=== PATIENT | female | born 1955 | race Caucasian/White ===

== ENCOUNTER 2017-03-03 11:00 | Day surgery (SDC) | payer OTHER ==
[~2017-03-03] VITALS: Ht 157.5 cm; Wt 93.5 kg
[2017-03-03] VITALS (9 sets, daily range): BP systolic 101–128; BP diastolic 60–73; PULSE 58–64; RESP 16–18; TEMP 97.5–98.4; O2SAT 94–100
[2017-03-03] MEDS ORDERED: LORazepam 1 MG TAB SL SCH (11:30)
[2017-03-03] MEDS ORDERED: SODIUM CHLORID 0.9% 500 ML INJ 500 ML IV SCH (11:30)
[2017-03-03] MEDS ORDERED: LACTATED RINGER'S 1000 ML IV PRN (11:45)
[2017-03-03] MEDS ORDERED: CHLORHEXIDINE GLUCONATE 2 % 1 PACK (2 CLOTHS) TOPICAL PRN (11:45)
[2017-03-03] MEDS ORDERED: POVIDONE IODINE 5% (ANTISEPSIS KIT) 4 APPLICATIONS EACH NARE PRN (11:45)
[2017-03-03] MEDS ORDERED: INSULIN HUMAN REGULAR 1,000 UNITS/10 ML VIAL SQ PRN (11:45)
[2017-03-03] MEDS ORDERED: SODIUM CHLORID 0.9% 500 ML IV PRN (12:00)
[2017-03-03] MEDS ORDERED: LEVOFLOXACIN 500 MG PREMIX INJ 100 ML IV ONE (12:15)
[2017-03-03] MEDS ORDERED: ISOPROTERENOL HCL 1 MG/5 ML AMP ONE (12:16)
[2017-03-03] MEDS ORDERED: PROTAMINE SULFATE 50 MG/5 ML VIAL ONE (12:16)
[2017-03-03] MEDS ORDERED: HEPARIN-D5W 25,000 U/250 ML 0 ML ONE (12:16)
[2017-03-03] MEDS ORDERED: HEPARIN SODIUM - IV 10,000 UNITS/10 ML VIAL ONE (12:17)
[2017-03-03] MEDS ORDERED: fentaNYL CITRATE 250 MCG/5 ML AMP ONE (12:17)
[2017-03-03 12:25] LABS: MEAN CELL VOLUME 85.9 FL (80.0-100.0); MEAN CORPUSCULAR HEMOGLOBIN 28.6 PG (27.0-34.0); MEAN CORPUSCULAR HGB CONC 33.3 % (32.0-36.0); PLATELET COUNT 209 TH/MM3 (150-450); RED BLOOD COUNT 4.89 MIL/MM3 (4.00-5.30); RED CELL DISTRIBUTION WIDTH 13.8 % (11.6-17.2); WHITE BLOOD COUNT 5.4 TH/MM3 (4.0-11.0)
[2017-03-03 12:27] LABS: HEMO FLAGS AUTO DIFF
[2017-03-03 12:31] LABS: APTT (PATIENT) 26.6 SEC (24.3-30.1); PROTHROMBIN TIME - PATIENT 11.3 SEC (9.8-11.6)
[2017-03-03] MEDS ORDERED: HEPARIN-NS/PF INJ 2,000 ML ONE (12:32)
[2017-03-03] MEDS ORDERED: APIX5TAB PO (12:37)
[2017-03-03] MEDS ORDERED: CALC500T35 (12:37)
[2017-03-03] MEDS ORDERED: MULT-65 PO (12:37)
[2017-03-03] MEDS ORDERED: NADO20TA PO (12:37)
[2017-03-03] MEDS ORDERED: LEVO100T5 PO (12:37)
[2017-03-03] MEDS ORDERED: SOTA80TA PO (12:37)
[2017-03-03 12:42] LABS: BICARBONATE 27.7 MEQ/L (21.0-32.0); POTASSIUM 3.9 MEQ/L (3.5-5.1)
[2017-03-03 13:05] LABS: BASOPHILS 1 % (0-2); EOSINOPHILS 1 % (0-4); NEUTROPHIL # MANUAL DIFF 3.3 TH/MM3 (1.8-7.7); POLYS (SEG NEUTROPHILS) 62 % (16-70); WBC DIFF SAMPLE 100
[2017-03-03 13:06] LABS: PLATELET ESTIMATE SMEAR NORMAL (NORMAL); PLATELET MORPHOLOGY NORMAL (NORMAL); SCAN/DIFF FINAL DIFF MANUAL
[2017-03-03] MEDS ORDERED: HEPARIN-D5W 25,000 U/250 ML 250 ML ONE (13:40)
--- NOTE | 2017-03-03 15:11 | CATHPROC ---
[employer] HIS Report Study Information Study Number Admission Scheduled Start Study Start [id number] Mar 03 2017 11:00AM 03/03/2017 Mar 03 2017 11:50AM [place] Service Electrophysiology Study Admit Source Facility Department Other [facility] Officer Physician and Clinical Staff Initial Vinnie Wright Press Operator [employer] Juju Rincon RCIS Other Darinel Villar,RT(R) Other Anesthesia, COAL HIKER Recorder Sherine Jennings,BSRN Recorder Linda Elkins,ALLI Scrub Janell Villanueva,RT(R) TECH2 Procedures Performed Procedure Location (Site) Vessel Name Ablation Procedure CRYO Ablation LIPV LIPV CRYO Ablation LSPV LSPV CRYO Ablation RIPV RIPV CRYO Ablation RSPV RSPV ICE CATHETER INSERT RA Atruim RF Ablation RA Atruim Venogram LIPV LIPV Venogram LSPV LSPV Venogram RIPV RIPV Venogram RSPV RSPV Equipment Time Spiral Tube Winder Description Size Mfg Part Number Used/Scraped NEEDLE, TRANSSEPTAL NRG 98 12:27 [facility] [id number] Used C1 BIOSENSE HERNÁNDEZ CATHETER, CELSIUS DS, 8MM, F [id number] 14:35 FR 7 Used INC. TYPE QUAD *[id number] [employer]/ EP 12:27 KIT, TRANSDUCER / AFIB [id number] Used PACER [id number] 12:27 [facility] CATHETER, JSN, QUAD BUNDLE FR 5 *[id number] Used BUNDLE [id number] 12:27 BUND[facility]-[employer] CATHETER, JSN, QUAD BUNDLE FR 5 *[id number] Used BUNDLE [id number], COOL POINT TUBING 12:27 BUNDLE-[employer] CASEY *[id number] Used BUNDLE BUNDLE SHEATH, FR8.5 STEERABLE SM 12:27 BUNDLE-[employer] CASEY 71CM [id number] Used 71CM BUNDLE COVER, TRANSDUCER CABLE 12:27 [employer] [id number] Used ACUNAV 12:27 CORDIS/PACER SHEATH, FR10 SHERIN 11CM FR 10 [id number] Used 12:27 CORDIS/PACER SHEATH, FR9 SHERIN 11CM FR 9 [id number] Used [id number] 12:27 MED[employer] PACK, CCL CUSTOM * Used *[id number] 12:27 MEDLINE PACER TERRELL, LIMB * 0603 *[id number] Used [id number] 12:27 [employer] SHEATH, FR4.5 PRELUDE 11CM FR 4.5 Used [id number] 12:27 NAMIC TUBING, HIGH PRESSURE 48" 48" Used *[id number] 12:27 NAMIC TUBING, HIGH PRESSURE 48" 48" Used *[id number] 14:12 NYCOMED OMNIPAQUE, 300 MG, 150ML 150ML [id number] Used [id number] 12:27 [employer] BLANKET,WARM AIR CCL * Used *[id number] 12:27 [facility] [employer] MEDICAL ELECTRODE KIT, MARISSA X SURFACE * [id number] Used 12:27 [facility] MEDICAL SHEATH, EPS, FR6 FAST CATH FR 6 [id number] Used 12:27 [facility] MEDICAL SHEATH, EPS, FR7 FAST CATH FR 7 [id number] Used 12:27 [facility] MEDICAL SHEATH, EPS, FR8 FAST CATH FR 8 [id number] Used CATHETER, ACUNAV FR10 ICE [id number] 12:54 MANJIT FR 10 Used (MANJIT) *[id number] [facility] PAD, ELECTROSURGICAL 12:27 * [id number] *[id number] Used SURGICAL GROUNDING (BLUE) BALLOON, ARCTIC FRONT [id number] 13:30 [employer] Used ADVANCE 28MM *[id number] CATHETER, ACHEIVE MAPPING [id number] 13:32 [employer] * Used 20MM [id number] SHEATH, FR12 FLEXCATH 13:29 V[employer]RON [employer] FR 12 [id number] Used STEERABLE History: Current Medications Medication Dosage/Unit Route Frequency Last Date/Time Taken ELIQUIS ASA History: Allergies Allergy Reaction NKDA History: Risk Factors Family History of Hypertension Dyslipidemia Previous NH Previous Heart Failure Premature CAD Yes No No No No Prior Valve Prior PCI Prior CABG Surgery No No No Cerebrovascular Peripheral Artery Chronic Lung On Dialysis Diabetes Disease Disease Disease No No No No No History: Symptoms/Diagnosis Selection Items ABDI History: Other Disease Selection Items HTN Labs Hgb (g/dl) Hct (%) RBC (MIL/MM3) WBC (l/cumm) Platelets (thousands) 11.60-17.00 35.00-51.00 4.00-5.90 4.00-11.00 150.00-450.00 14.0 42 4.8 5.4 209 Glucose (mg/dl) BUN (mg/dl) Creatinine (mg/dl) BUN:Creatinine (1:x) 74.00-106.00 7.00-18.00 0.50-1.30 10.00-20.00 93 28 1.1 25.5 Na (meq/l) K (meq/l) Cl (meq/l) CO2 (mmol/L) Ca (mg/dl) 136.00-145.00 3.50-5.10 98.00-107.00 21.00-32.00 8.50-10.10 143 3.9 107 27.7 9.1 INR (PTT:PT) 0.90-1.10 1 Medication Medication Total Dose (Bolus/Oral) Medication Total Dosage/Unit 1% XYLOCAINE 40 mL HEPARIN 58392 units PROTAMINE 40 mg Medications (Bolus/Oral) Medication Time Given Dosage/Unit Administered By Reason 1% XYLOCAINE 03/03/2017 1:16:10 PM 20 mL Vinnie Yañez For pain 20 mL 1% XYLOCAINE given in lab by Vinnie Yañez in Left Groin via Subcutaneous. Ordered by Amor Yañez. Reason: For pain. 1% XYLOCAINE 03/03/2017 1:19:21 PM 20 mL Vinnie Yañez For pain 20 mL 1% XYLOCAINE given in lab by Vinnie Yañez in Right Groin via Subcutaneous. Ordered by Logan Yañez. Reason: For pain. HEPARIN 03/03/2017 1:24:22 PM 9000 units Vinnie Yañez 9000 units HEPARIN given in lab by Vinnie Yañez via Peripheral IV. Ordered by Vinnie Yañez. HEPARIN 03/03/2017 1:38:11 PM 2000 units Anesthesia, COAL HIKER As per physicians verbal order 2000 units HEPARIN given in lab by Anesthesia, COAL HIKER in Right Antecubital via Peripheral IV. Ordered b y Vinnie Yañez. Reason: As per physicians verbal order. PROTAMINE 03/03/2017 3:00:00 PM 40 mg Anesthesia, COAL HIKER As per physicians ve rbal order 40 mg PROTAMINE given in lab by Anesthesia, COAL HIKER in Right Antecubital via Peripheral IV. Ordered by Vinnie Arevalo. Reason: As per physicians verbal order. Medication (Drip) Medication Time Given Dosage/Unit Concentration/Unit Diluent (ml) Solution HEPARIN DRIP 03/03/2017 1:38:32 PM 1000 units/hr 19448 units 250 D5W 1000 units/hr HEPARIN DRIP given in lab by Anesthesia, COAL HIKER in Right Antecubital via Peripheral IV. P ump/Drip Flow = 10 ml/hr [place] D5[place] [address] units in 250 ml. Ordered by Vinnie Yañez. Reason: As per physicians verbal or nae. ISUPREL 03/03/2017 2:42:00 PM 10 mcg/min 1 mg 250 NaCl .9 10 mcg/min ISUPREL given in lab by Anesthesia, COAL HIKER in Right Antecubital via Peripheral IV. Pump/Drip Flow = 150 ml/hr using NaCl .9 with a concentration of 1 mg in 250 ml. Ordered by Vinnie Yañez. Reason: As per physicians verbal order. IV Solutions 03/03/2017 12:16:00 PM 0 mL (IV) NaCl .9 IV Solutions given in lab by Sherine Jennings BSRN in Left Antecubital via Peripheral IV. Pump/Drip Flow = 50 ml/hr using NaCl .9. Ordered by Vinnie Yañez. Reason: As per physicians verbal order. IV Solutions 03/03/2017 12:16:05 PM 0 mL (IV) NaCl .9 IV Solutions given in lab by Sherine Jennings BSRN in Left Antecubital via Peripheral IV. Pump/Drip Flow = 50 ml/hr using NaCl .9. Ordered by Vinnie Yañez. Reason: As per physicians verbal order. LEVAQUIN 03/03/2017 12:10:00 PM 100 mL/hr 500 100 NaCl .9 100 mL/hr LEVAQUIN given pre op in Right Antecubital via Peripheral IV. Pump/Drip Flow = 0 ml/hr usin g NaCl .9 with a concentration of 500 in 100 ml. Ordered by Vinnie Yañez. Reason: As per physicians verbal order. Jesusita CARSON DOC unit Initial Case Assessment Cardiovascular HR NIBP Chest Pain 60 136/72 0 Edema Present Skin color Skin None Normal Warm Dry Neurological State Oriented to time-place- Alert Moves all extremities person Respiration - General Respiration Rate SpO2 (%) (B/min) 18 100 Final Case Assessment Cardiovascular HR NIBP 86 106/50 Edema Present Skin color Skin None Normal Warm Dry Neurological State Oriented to time-place- Alert Moves all extremities person Respiration - General Respiration Rate SpO2 (%) (B/min) 18 98 Chronological Log Time Study Chronological Log 100 mL/hr LEVAQUIN given pre op in Right Antecubital via Peripheral IV. Pump/Drip Flow = 0 ml/h r using NaCl .9 with 12:10:00 a concentration of 500 in 100 ml. Ordered by Vinnie Yañez. Reason: As per physicians brennon loomis order. Jesusita [facility] DOC unit 12:14:39 Patient arrived via Bed. 12:14:40 Indwelling uretheral catheter draining clear yellow urine placed in DOC 12:14:40 Patient Name, D.O.B, / Armband Verified By R.N. 12:14:41 Consent signed by the physician and the patient and verified by the County Health Officer staff. 12:14:41 Pre-op and post- op instructions given; patient acknowledges understanding of instructions. 12:14:42 Verbal Stimulation=2 Physical Stimulation=2 Airway=2 Respiration=2 TOTAL=8. (0=absent, 1=li mited, 2=present) 12:14:54 Anesthesia at bedside. Assumes care of patient. Chris COAL HIKER 12:14:57 Patient has been NPO for More than 6Hrs. 12:14:58 Skin Breakdown- 12:14:59 Patient Warmer Placed on the Table. 12:15:00 Patient Warmer Placed on the Table. Assessment: Initial Case, HR=60 BPM, NCES=954/72 mmhg, Chest Pain=0, Edema=None, Color=Normal, Skin = Warm, Dry 12:15:00 Neurological: State=Alert, Ox3, RAZA Respiration: Resp=18 B/min, DrW7=616 % 12:15:00 Disposable Defibrillator Pads Placed On Patient. 12:15:00 Elio Prominences Protected 12:15:03 A # 20 IV was noted in the Antecubital (left). Grade = ~GRADE~ 12:15:03 A # 20 IV was noted in the Antecubital (right). Grade = ~GRADE~ IV Solutions given in lab by Sherine Jennings BSRN in Left Antecubital via Peripheral IV. Pump /Drip Flow = 50 ml/hr 12:16:00 using NaCl .9. Ordered by Vinnie Yañez. Reason: As per physicians verbal order. IV Solutions given in lab by Sherine Jennings BSRN in Left Antecubital via Peripheral IV. Pump /Drip Flow = 50 ml/hr 12:16:05 using NaCl .9. Ordered by Vinnie Yañez. Reason: As per physicians verbal order. 12:28:02 Patient has been NPO for More than 6Hrs. 12:29:09 History and physical on the chart or being dictated. 12:29:11 Table restraints applied according to hospital policy 12:29:13 Right groin prepped with 2% chlorhexidine, and with a 3 min. waiting time. 12:29:16 Left groin prepped with 2% chlorhexidine, and with a 3 min. waiting time. 12:47:01 Pressure channel 1 zeroed. 12:51:13 MD notified ready. 12:56:18 Reference ECG taken 13:09:15 MD arrived. 13:09:36 Immediate Presedation assesment performed by physician. Time Out. Correct patient, procedure, procedure equipment, site and side verified with physicia n present. Time 13:12:00 concurred by MD, individual staff and COAL HIKER. Time Out #2 - Consents verified, patient in correct position, all results are labled and displa yed, safety precautions 13:12:15 taken, antibiotics administered. Time out concurred by MD, individual staff and COAL HIKER in procedu re 13:12:38 Case Start 13:13:00 LILIBETH performed at bedside by Dr. Yañez 13:15:33 LILIBETH complete. 20 mL 1% XYLOCAINE given in lab by Vinnie Yañez in Left Groin via Subcutaneous. Ordered by Vinnie Hendricks. 13:16:10 Reason: For pain. 13:16:28 Vascular access was obtained in the Fem Vein (left). 13:16:32 Vascular access was obtained in the Fem Vein (left). 13:16:33 Vascular access was obtained in the Fem Vein (left). 13:16:37 Vascular access was obtained in the Fem Art (left). 13:16:56 A SHEATH, FR4.5 PRELUDE 11CM FR 4.5 was advanced into the Fem Art (left) using the Percutan eous technique. 13:17:18 A SHEATH, EPS, FR6 FAST CATH FR 6 was advanced into the Fem Vein (left) using the Percutane ous technique. 13:17:27 A SHEATH, EPS, FR7 FAST CATH FR 7 was advanced into the Fem Vein (left) using the Percutane ous technique. 13:17:37 A SHEATH, FR10 SHERIN 11CM FR 10 was advanced into the Fem Vein (left) using the Percutaneo us technique. 20 mL 1% XYLOCAINE given in lab by Vinnie Yañez in Right Groin via Subcutaneous. Ordered by Vinnie Yen. 13:19:21 Reason: For pain. 13:19:31 Vascular access was obtained in the Fem Vein (right). 13:19:54 A SHEATH, EPS, FR8 FAST CATH FR 8 was advanced into the Fem Vein (right) using the Percutan eous technique. A CATHETER, JSN, QUAD BUNDLE FR 5 was advanced vis Fem Vein (left) and placed in the CS. Placem ent was visually 13:20:07 confirmed under fluoroscopy. A CATHETER, JSN, QUAD BUNDLE FR 5 was advanced vis Fem Vein (left) and placed in the HIS. Place ment was 13:20:22 visually confirmed under fluoroscopy. 13:21:04 CATHETER, ACUNAV FR10 ICE (Press) FR 10 Was Postioned. A SHEATH, FR8.5 STEERABLE SM 71CM BUNDLE 71CM was exchanged in the Fem Vein (right). This was n ecessary in 13:23:12 order for catheter support. 13:24:22 9000 units HEPARIN given in lab by Vinnie Yañez via Peripheral IV. Ordered by Yamileth Yañez y. 13:28:00 Clarita needle in 13:28:07 transseptal 13:28:30 Clarita needle out. A SHEATH, FR12 FLEXCATH STEERABLE FR 12 was exchanged in the Fem Vein (right). This was necessa ry in order to 13:29:00 accomodate a larger catheter. A CATHETER, ACHEIVE MAPPING 20MM * was advanced vis Fem Vein (right) and placed in the LA. Plac ement was 13:30:00 visually confirmed under fluoroscopy. 13:32:30 Activated Clotting Time Drawn 13:37:00 ACT (Normal Range 90-180) = 330 2000 units HEPARIN given in lab by Anesthesia, COAL HIKER in Right Antecubital via Peripheral IV. Ord ered by Vinnie Yañez. 13:38:11 Reason: As per physicians verbal order. 1000 units/hr HEPARIN DRIP given in lab by Anesthesia, COAL HIKER in Right Antecubital via Peripheral IV. Pump/Drip Flow = 13:38:32 10 ml/hr [place] [address] units in 250 ml. Ordered by Vinnie Yañez. Reason: As per physicians verbal order. 13:41:49 A BALLOON, ARCTIC FRONT ADVANCE 28MM was inserted over wire via the Fem Vein (right). 13:41:50 The LSPV was manually injected with 10 cc's of contrast. OMNIPAQUE, 300 MG, 150ML 150ML use d. 13:42:19 Cryo Ablation of the LSPV with a BALLOON, ARCTIC FRONT ADVANCE 28MM. first freeze 13:49:24 Activated Clotting Time Drawn 13:53:46 Cryo Ablation of the LSPV with a BALLOON, ARCTIC FRONT ADVANCE 28MM. second freeze 13:58:35 ACT (Normal Range 90-180) = 367 13:59:00 The LIPV was manually injected with 10 cc's of contrast. OMNIPAQUE, 300 MG, 150ML 150ML use d. 13:59:18 Cryo Ablation of the LIPV with a BALLOON, ARCTIC FRONT ADVANCE 28MM. first freeze 14:10:55 The RIPV was manually injected with 10 cc's of contrast. OMNIPAQUE, 300 MG, 150ML 150ML use d. 14:18:26 Cryo Ablation of the RIPV with a BALLOON, ARCTIC FRONT ADVANCE 28MM. first freeze 14:19:00 The RSPV was manually injected with 10 cc's of contrast. OMNIPAQUE, 300 MG, 150ML 150ML use d. 14:22:00 Cryo Ablation of the RSPV with a BALLOON, ARCTIC FRONT ADVANCE 28MM. 14:28:50 Activated Clotting Time Drawn 14:33:22 Cryo Catheter was removed 14:33:30 Heparin gtt off A CATHETER, CELSIUS DS, 8MM, F TYPE QUAD FR 7 was advanced vis Fem Vein (right[facility] 14:34:40 Placement was visually confirmed under fluoroscopy. 14:35:38 RF Ablation of the RA with a CATHETER, CELSIUS DS, 8MM, F TYPE QUAD FR 7. 14:36:45 ACT (Normal Range 90-180) = 378 10 mcg/min ISUPREL given in lab by Anesthesia, COAL HIKER in Right Antecubital via Peripheral IV. Pum p/Drip Flow = 150 14:42:00 ml/hr using NaCl .9 with a concentration of 1 mg in 250 ml. Ordered by Vinnie Yañez. Reaso n: As per physicians verbal order. 14:42:48 Ablation procedure performed: AFIB. 14:42:58 EP Procedure was performed. 14:52:53 Isuprel gtt turned off. Assessment: Final Case, HR=86 BPM, JDKB=368/50 mmhg, Edema=None, Color=Normal, Skin = Warm, Dry 14:53:29 Neurological: State=Alert, Ox3, RAZA Respiration: Resp=18 B/min, SpO2=98 % 40 mg PROTAMINE given in lab by Anesthesia, COAL HIKER in Right Antecubital via Peripheral IV. Order ed by Vinnie Yañez. 15:00:00 Reason: As per physicians verbal order. 15:01:09 Catheter(s) removed without difficulty NS to catheters. 15:01:28 Sheath(s) left in place, will be removed in Holding Area 15:01:39 Sterile dressing applied to site 15:01:41 No case complications noted. 15:01:44 Cine recording checked. 15:01:48 Holding Area notified of successful intervention. 15:01:52 Bedside Report will be given. 15:01:56 Contrast Scanned 15:01:58 Defibrillator and ground pads removed. Skin intact. 15:02:20 PACU called. Spoke to Meka. 15:08:00 Activated Clotting Time Drawn 15:10:00 ACT (Normal Range 90-180) = 139 15:10:29 Case End 15:20:[facility] in stable condition. End Study - Contrast Media Used In Study Contrast Total Opened (mL) Total Used (mL) Total Wasted (mL) Omnipaque 150 40 110 End Study - Maximum Contrast Load Max Contrast Load (mL) 409.9 End Study - Radiation Exposure Fluoro Time (minutes) 5.6 End Study - Patient Disposition Complications Transferred To Interventional Outcome No Telemetry Bed successful
[2017-03-03] MEDS ORDERED: ATROPINE SULFATE 1 MG/ML VIAL IV PRN (15:15)
[2017-03-03] MEDS ORDERED: LIDOCAINE HCL 1% 50 ML VIAL INFIL PRN (15:15)
[2017-03-03] MEDS ORDERED: LORazepam 2 MG/ML VIAL IV PRN (15:15)
[2017-03-03] MEDS ORDERED: ONDANSETRON HCL 4 MG/2 ML VIAL IV PRN (15:15)
[2017-03-03] MEDS ORDERED: METOCLOPRAMIDE HCL 10 MG/2 ML VIAL IV PRN (15:15)
[2017-03-03] MEDS ORDERED: oxyCODONE/ACETAMINOPHEN 5 MG/325 MG TAB PO PRN (15:15)
[2017-03-03] MEDS ORDERED: BACITRACIN OINT 0.9 GM PKT TOP ONE (15:15)
[2017-03-03] MEDS ORDERED: SODIUM CHLOR 0.9% 250 ML INJ 250 ML IV PRN (15:15)
--- NOTE | 2017-03-03 15:50 | MA ---
cc: JAMESON RUSSO M.D. DATE: 03/03/2017 PROCEDURE: Electrophysiology study, CS cannulation, 3-D mapping, transeptal approach, cryoablation of atrial fibrillation, pulmonary vein isolation, posterior ablation, atrial flutter ablation, repeat electrophysiology study on Isuprel infusion. Intracardiac echo that was a very complex case. Mrs. Munoz is a 62-year-old female with frequent tachyarrhythmia, previous hospitalization, referred for electrophysiology study, atrial flutter, atrial fibrillation ablation. The risks, the nature and the benefit of the procedure are clearly stated to her risks include pneumothorax, cardiac perforation, stroke, need for open heart surgery and even . The patient understood and agreed to proceed. PROCEDURE As written informed consent was obtained prior to transesophageal echo the patient was kept on the table where she was prepped and draped in the usual sterile fashion. Conscious sedation was initiated and maintained throughout the procedure by anesthesiologist. Once sedation verified, the right and left inguinal area was anesthetized with 2% Xylocaine. Using modified Seldinger technique, the left femoral vein was cannulated on three occasions and the guide wire was advanced over the wire, 6 or 7, and a 10-Brazilian Hemaquet was advanced. Then the left femoral artery was cannulated on one occasion, one guide wire was advanced over the wire, a 4-Brazilian Hemaquet was advanced. Then the right femoral vein was cannulated on one occasion, one guidewire was advanced over the wire an 8-Brazilian Hemaquet was advanced. Then under fluoroscopic guidance through the 6 and 7-Brazilian Hemaquet, two 5-Brazilian Nicole curved quadripolar electrophysiology catheters were advanced and placed on the HIS as well as coronary sinus. Basic interval was measured and were all within normal limits. Through the 10-Brazilian Hemaquet, a Cordis Rodríguez Actonel intracardiac echo catheter was placed at the right atrium. Multiple view was obtained. There is no pericardial effusion. Pulmonary vein was seen, atrial septum was well visualized. Then the 8-Brazilian Hemaquet in the right femoral vein was exchanged for distal septal sheath that was placed all the way to the superior vena cava. Through the sheath a [place] needle was advanced. At that point the patient received 10,000 units of heparin. The goal is to keep ACT around 350 during the ablation. Then the sheath was dilated and needle was pulled back until foci engaged. Once engaged, the needle was advanced. RF was delivered for 2 seconds. I was able to cross into the left atrium. Once the needle crossed dilator was advanced, one dilator crossed the sheath was advanced, when the sheath crossed the dilator the needle were removed. Intracardiac echo showed sheath in good position. At this point I decided to proceed with cryoablation of the pulmonary veins. Through the sheath, 035 wire was advanced. The wire was placed at the left superior vein. Then sheath was exchanged over the wire for a Medtronic flex sheath. Once the flex sheath crossed the dilator the needle was removed. Continue flush out of the system was performed using IV pump. Then through the sheath the 28 mm balloon was advanced. To the balloon I did advance the sheath circumferential catheter mapping from [employer]. I did engage the left superior vein. Signal was seen, the vein was mapped. The balloon was inflated. A venography was performed and when total occlusion was observed. Cryo energy was delivered for 3 and 3 minutes. Comparative drop -48. I did ablate it twice. At the pacing from the vein showed no conduction to the atrium. I did map part of the posterior anterior wall. There was no signal in the veins. Then I decided to engage the left inferior vein. It was engaged. The circumferential catheter was advanced into the vein. The balloon was inflated after complete occlusion of observed. Cryo energy was delivered for 240-seconds. Then subsequently 180-seconds. Signal disappeared pretty fast in the vein. Then pacing from the vein showed no conduction to the atrium. I did map the area. There was no significant signal. Then the his catheter was placed at the level of the right subclavian. Pacing was performed. There was good capture of the phrenic nerve. There was diaphragmatic stimulation. This catheter was be kept in place for monitoring of the phrenic nerve during the right vein isolation. First I did engage the right inferior vein occlusion obtained. Cryo energy was in was delivered for 180 seconds. No conduction resumed. Pacing from the vein showed no conduction to the atrium. Then the right superior was engaged and balloon was inflated. After of occlusion, Cryo energy was delivered for 180 and 180 seconds. Then I did map around the atrium and the vein. There was no conduction by pacing and the posterior anterior wall was completely isolated. At that point I did remove the balloon in the sheath. I did proceed with atrial pacing protocol. During pacing from the coronary sinus atrial flutter was induced. I decided to proceed with ablation. The patient converted into sinus rhythm. A 8-mm Cordis F curve mapping radiofrequency ablation catheter was advanced. Using <<6:21>> a three-dimensional configuration all the right atrium was obtained also. Then the catheter was placed at the critical isthmus radiating at a frequency energy was delivered. Subsequently pacing lateral to the line showed a activation in the HIS compared to the CS that indicated bilateral <<6:38>> block. At that point atrial pacing protocol was repeated again no tachyarrhythmia was induced. Isuprel was infused at 10 ivania and no tachyarrhythmia was induced post Isuprel no tachyarrhythmia was induced. At that point procedure was complete. Intracardiac portion was pericardial effusion. A transseptal sheath was exchanged for a 12-Brazilian Hemaquet. The patient going to be transferred to recovery room. That was very complex case. No incident report. The patient tolerated procedure, blood loss minimal. FINDINGS: 1. Electrocardiogram baseline the patient was in sinus rhythm. postprocedure electrocardiogram was unchanged. 2. Basic interval base cycle length was around 890, AH at 90 and HV was around 45 milliseconds. 3. Atrial pacing protocol Wenckebach of the node was around 460 milliseconds. During atrial pacing protocol at the coronary sinus atrial flutter was induced. 4. Tachyarrhythmia atrial fibrillation was mapped and ablated atrial flutter was mapped and ablated. Ablation was successful. CONCLUSION Status electrophysiology study, mapping radiofrequency ablation of atrial fibrillation, atrial flutter, COMMENT/RECOMMENDATIONS The patient going to be transferred to the telemetry unit. Will be observed when stable can be discharged home. MD MOLINA Flores/eladio /3:08 PM /3:32 PM
[2017-03-03] MEDS: oxyCODONE/ACETAMINOPHEN 5 MG/325 MG TAB PO PRN ×2 (16:14→21:07)
[2017-03-03] MEDS ORDERED: DO NOT ADM ANY ANTICOAGULANT DRUGS PRN (17:30)
[2017-03-03] MEDS: SOTALOL HCL 80 MG TAB PO SCH (21:07)
[2017-03-03] MEDS: APIXABAN 5 MG TABLET PO SCH (21:07)
[2017-03-04] VITALS (11 sets, daily range): BP systolic 97–108; BP diastolic 58–76; PULSE 61–66; RESP 16–18; TEMP 97.7–98; O2SAT 96
[2017-03-04] MEDS ORDERED: LEVOTHYROXINE SODIUM 100 MCG TAB PO SCH (06:00)
[2017-03-04 07:10] LABS: APTT (PATIENT) 25.4 SEC (24.3-30.1); INTERNATIONAL NORMALIZED RATIO 1.1 RATIO; PROTHROMBIN TIME - PATIENT 11.7 SEC (9.8-11.6)
[2017-03-04] MEDS: SOTALOL HCL 80 MG TAB PO SCH (08:49)
[2017-03-04] MEDS: NADOLOL 20 MG TAB PO SCH ×2 (08:49→08:56)
[2017-03-04] MEDS: APIXABAN 5 MG TABLET PO SCH (08:50)
--- NOTE | 2017-03-04 08:54 | PD.CARD.PN ---
Subjective Subjective Remarks Feels okay. Objective Medications Current Medications Medications (Trade) Dose Ordered Sig/Ochoa Route Start Time Stop Time Status Last Admin Sodium Chloride 500 ml @ 30 mls/hr [id number] IV 03/03/17 11:30 (Ativan) 1 mg MEDICAL RESEARCH ASSISTANT SL 03/03/17 11:30 03/06/17 11:29 03/03/17 12:12 (Betadine 5% Antisepsis Kit) 1 applic MEDICAL RESEARCH ASSISTANT PRN EACH NARE 03/03/17 11:45 03/06/17 11:44 (Chlorhexidine 2% Cloth) 3 pack MEDICAL RESEARCH ASSISTANT PRN TOPICAL 03/03/17 11:45 03/06/17 11:44 (NovoLIN R INJ) See Protocol Table ... MEDICAL RESEARCH ASSISTANT PRN SQ 03/03/17 11:45 03/06/17 11:44 (Percocet 5-325 Mg) 1 tab Q4H PRN PO 03/03/17 15:15 (Percocet 5-325 Mg) 2 tab Q4H PRN PO 03/03/17 15:15 03/03/17 21:07 (Ativan Inj) 0.5 mg UNSCH PRN IV 03/03/17 15:15 03/04/17 15:14 (Atropine Inj) 0.5 mg UNSCH PRN IV 03/03/17 15:15 Sodium Chloride 250 ml @ 500 mls/hr ONCE PRN IV 03/03/17 15:15 03/04/17 15:14 (Reglan Inj) 10 mg Q4H PRN IV 03/03/17 15:15 (Zofran Inj) 4 mg Q4H PRN IV 03/03/17 15:15 (Xylocaine 1% Inj (50 ml)) 10 ml UNSCH PRN INFIL 03/03/17 15:15 03/04/17 15:14 (Eliquis) 5 mg BID PO 03/03/17 21:00 03/03/17 21:07 (Synthroid) 100 mcg DAILY@0600 PO 03/04/17 06:00 03/04/17 05:45 (Corgard) 20 mg DAILY PO 03/04/17 09:00 (Betapace) 80 mg BID PO 03/03/17 21:00 03/03/17 21:07 (Theragran) 1 tab DAILY PO 03/04/17 09:00 Miscellaneous Information ALL NURSING DEPARTME... UNSCH PRN .XX 03/03/17 17:30 03/04/17 17:29 Vital Signs / I&O Vital Signs Date Time Temp Pulse Resp B/P (MAP) Pulse Ox O2 Delivery O2 Flow Rate FiO2 03/04/17 06:00 63 03/04/17 05:00 63 03/04/17 04:00 61 03/04/17 03:30 98.0 62 16 97/58 (71) 96 03/04/17 03:00 63 03/04/17 02:00 63 03/04/17 01:00 63 03/04/17 00:00 61 03/03/17 23:00 97.7 63 16 101/60 (74) 94 03/03/17 23:00 62 03/03/17 22:00 62 03/03/17 21:00 62 03/03/17 20:00 64 03/03/17 20:00 97.5 64 16 108/71 (83) 98 03/03/17 19:00 62 03/03/17 18:00 60 03/03/17 17:00 60 03/03/17 16:45 98.4 63 17 114/73 (87) 99 03/03/17 16:15 97.4 61 16 118/65 (82) 98 Room Air 03/03/17 16:00 62 16 114/68 (83) 100 03/03/17 15:45 65 12 114/74 (87) 100 03/03/17 15:30 65 12 117/63 (81) 100 Nasal Cannula 2 03/03/17 15:24 97.5 65 12 127/64 (85) 99 Nasal Cannula 2 03/03/17 12:03 97.7 58 18 128/72 (90) 100 I/O 03/03/17 03/03/17 03/03/17 03/04/17 03/04/17 03/04/17 07:00 15:00 23:00 07:00 15:00 23:00 Intake Total 460 ml 720 ml Output Total 250 ml 300 ml Balance 210 ml 420 ml Intake Oral 360 ml 720 ml IV Total 100 ml Output Urine Total 250 ml 300 ml # Bowel Movements 0 0 Physical Exam GENERAL: Well-nourished, well-developed patient. SKIN: Warm and dry. Groin site soft with no erythema, bruising or bleeding. HEAD: Normocephalic. EYES: No scleral icterus. No injection or drainage. NECK: Supple, trachea midline. No JVD or lymphadenopathy. CARDIOVASCULAR: Regular rate and rhythm without murmurs, gallops, or rubs. RESPIRATORY: Breath sounds equal bilaterally. No accessory muscle use. GASTROINTESTINAL: Abdomen soft, non-tender, nondistended. EXTREMITIES: No cyanosis, or edema. NEUROLOGICAL: Awake, alert, and oriented x 3. Non-focal. Laboratory Laboratory Tests Test 03/03/17 11:50 03/04/17 06:07 White Blood Count 5.4 TH/MM3 Red Blood Count 4.89 MIL/MM3 Hemoglobin 14.0 GM/DL Hematocrit 42.0 % Mean Corpuscular Volume 85.9 FL Mean Corpuscular Hemoglobin 28.6 PG Mean Corpuscular Hemoglobin Concent 33.3 % Red Cell Distribution Width 13.8 % Platelet Count 209 TH/MM3 Mean Platelet Volume 8.4 FL CBC Comment AUTO DIFF Differential Total Cells Counted 100 Neutrophils % (Manual) 62 % Lymphocytes % 29 % Monocytes % 7 % Eosinophils % 1 % Basophils % 1 % Neutrophils # (Manual) 3.3 TH/MM3 Differential Comment FINAL DIFF MANUAL Platelet Estimate NORMAL Platelet Morphology Comment NORMAL Red Cell Morphology Comment NORMAL Prothrombin Time 11.3 SEC 11.7 SEC Prothromb Time International Ratio 1.0 RATIO 1.1 RATIO Activated Partial Thromboplast Time 26.6 SEC 25.4 SEC Blood Urea Nitrogen 28 MG/DL Creatinine 1.17 MG/DL Random Glucose 93 MG/DL Calcium Level 9.1 MG/DL Sodium Level 143 MEQ/L Potassium Level 3.9 MEQ/L Chloride Level 107 MEQ/L Carbon Dioxide Level 27.7 MEQ/L Anion Gap 8 MEQ/L Estimat Glomerular Filtration Rate 47 ML/MIN Assessment and Plan Problem List: (1) Atrial fibrillation ICD Codes: I48.91 - Unspecified atrial fibrillation Status: Chronic Plan: Normal sinus rhythm on telemetry status post A. fib ablation. Continue eliquis. Stable for discharge home. (2) S/P ablation of atrial fibrillation ICD Codes: Z98.890 - Other specified postprocedural states; Z86.79 - Personal history of other diseases of the circulatory system Plan: Stable status post ablation of atrial fibrillation. Discharge home. Follow-up with Dr. Yañez in 3 weeks per my discussion with him. Contact office for any questions or concerns. Problem Qualifiers (1) Atrial fibrillation: Qualified Codes: I48.0 - Paroxysmal atrial fibrillation Zhanna Gómez Mar 04, 2017 08:54
[2017-03-04] MEDS ORDERED: MULTIVITAMIN TAB PO SCH (09:00)
--- NOTE | 2017-03-04 17:06 | EKG ---
Date Performed: 03/03/2017 Time Performed: 15:41:46 PTAGE: 62 years EKG: Sinus rhythm NONSPECIFIC T-WAVE ABNORMALITY BORDERLINE ECG NO PREVIOUS TRACING DOCTOR: Tiffanie Clement Interpretating Date/Time 03/04/2017 17:03:06
--- NOTE | 2017-03-04 17:07 | EKG ---
Date Performed: 03/04/2017 Time Performed: 03:45:40 PTAGE: 62 years EKG: Sinus rhythm Prolonged QT interval Since previous tracing, no significant change noted Borderline ECG PREVIOUS TRACING : 03/03/2017 15.41 DOCTOR: Tiffanie Clement Interpretating Date/Time 03/04/2017 17:03:17
== END 2017-03-04 11:00 | disposition home or self-care (01) ==
LOC: HDOC 11:00 → HDIC 11:03 → HCIN 16:35 → HDOC 03-04 11:00
PROVIDERS: ATTEND Internal Medicine Interventional Cardiology
DX: I48.91 Unspecified atrial fibrillation (principal); I48.92 Unspecified atrial flutter; R00.2 Palpitations; I10 Essential (primary) hypertension; E07.9 Disorder of thyroid, unspecified
CPT/HCPCS: 80048; 85002; 85007; 85027; 85610; 85730; 86850; 86900; 86901; 93005; 93312; 93320; 93325; 93613; 93623; 93656; 93657; 93662; C1730; C1731; C1732; C1733; C2630; J1644; J1956; J2720; J3010